=== PATIENT | female | born 1995 | race Caucasian/White ===

== ENCOUNTER 2017-03-14 17:51 | Emergency (ER) | payer BC, OTHER ==
[~2017-03-14] VITALS: Ht 162.6 cm; Wt 79.6 kg
[2017-03-14 17:53] VITALS: Ht 162.6 cm; Wt 79.6 kg
--- NOTE | 2017-03-14 20:18 | RADRPT ---
PROCEDURE: XR Shoulder. CLINICAL INDICATION: Right shoulder pain TECHNIQUE: Three views of the right shoulder are available for review. COMPARISON: None available FINDINGS: No acute fracture or dislocation is seen. No radiopaque foreign body is identified. The acromioclav icular and glenohumeral joints are unremarkable. The visualized portions of the right clavicle and upper right rib cage are equally unremarkable. IMPRESSION: 1. No acute fracture or dislocation is seen. RPTAT: HH .Hellen Duran MD, Date Time Electronically viewed and signed by .Hellen Duran MD, on 03/14/2017 20:18 .N/
--- NOTE | 2017-03-14 20:18 | RADRPT ---
PROCEDURE: XR Shoulder. CLINICAL INDICATION: Right shoulder pain TECHNIQUE: Three views of the right shoulder are available for review. COMPARISON: None available FINDINGS: No acute fracture or dislocation is seen. No radiopaque foreign body is identified. The acromioclav icular and glenohumeral joints are unremarkable. The visualized portions of the right clavicle and upper right rib cage are equally unremarkable. IMPRESSION: 1. No acute fracture or dislocation is seen. RPTAT: HH .Hellne Duran MD, Date Time Electronically viewed and signed by .Hellen Duran MD, on 03/14/2017 20:18 .N/
--- NOTE | 2017-03-14 20:19 | RADRPT ---
PROCEDURE: XR Wrist. CLINICAL INDICATION: Left wrist pain TECHNIQUE: AP, lateral and oblique views of the left wrist were performed. COMPARISON: No prior studies are available for comparison. FINDINGS: No evidence of fracture, dislocation, or subluxation is seen. The bones appear well mineralized. The joint spaces are well preserved. No significant soft tissue swelling is present. There is no radiop aque foreign body. IMPRESSION: 1. No acute fracture or dislocation. RPTAT: HH .Hellen Duran MD, Date Time Electronically viewed and signed by .Hellen Duran MD, on 03/14/2017 20:18 .N/
--- NOTE | 2017-03-14 20:19 | RADRPT ---
PROCEDURE: XR Elbow. CLINICAL INDICATION: Left elbow pain TECHNIQUE: Three views of the left elbow are available for review COMPARISON: None available FINDINGS: No acute fracture or dislocation is seen. No radiopaque foreign body is identified. No fat pad sail sign is identified to indicate a hemarthrosis. There is no significant soft tissue swelling. IMPRESSION: 1. No acute fracture or dislocation. RPTAT: HH .Hellen Duran MD, MD Date Time Electronically viewed and signed by .Hellen Duran MD, on 03/14/2017 20:19 .N/
[2017-03-14] MEDS ORDERED: IBUP-1542 PO (20:24)
--- NOTE | 2017-03-14 21:24 | ERD ---
ER Documentation Chief Complaint Chief Complaint lt elbow and forearm pain , rt shoulder pain s/p fall HPI Patient is a 21-year-old female presenting to the emergency department with complaints of left elbow, left wrist, and right shoulder pain status post fall earlier today. The patient was standing and was trying to step over a ledge and fell approximately 5 feet forward onto her left wrist and left elbow. Pain is 6 out of 10, intermittent, worse with movement, no medication taken for relief of symptoms. She denies any head injury, loss of consciousness, or other injuries at this time. ROS All systems reviewed and are negative except as per history of present illness. Medications Home Meds Active Scripts Ibuprofen* (Motrin*) 600 Mg Tab, 600 MG PO Q6, #30 TAB Prov:MILIND ABREU PA-C 03/14/17 PMhx/Soc History of Surgery: No Anesthesia Reaction: No Hx Neurological Disorder: No Hx Respiratory Disorders: No Hx Cardiac Disorders: No Hx Psychiatric Problems: No Hx Miscellaneous Medical Probl: No Hx Alcohol Use: No Hx Substance Use: No Hx Tobacco Use: No Smoking Status: Never smoker Physical Exam Vitals Vital Signs Date Time Temp Pulse Resp B/P Pulse Ox O2 Delivery O2 Flow Rate FiO2 03/14/17 17:53 98.1 78 18 131/89 100 Physical Exam Const: Nontoxic, well-appearing female in no acute distress. Head: Atraumatic Eyes: Normal Conjunctiva ENT: Normal External Ears, Nose and Mouth. Skin: No petechiae or rashes Ext: Subjective tenderness palpation about the left wrist. Difficulty with active supination of the left upper extremity. Range of motion is intact in the left wrist. 2+ radial pulses. No obvious deformity or open fracture noted. No significant ecchymosis or edema noted. The patient has mildly limited abduction of the right upper extremity. 2+ radial pulses in the right upper extremity no obvious deformity. No open fracture of the right upper extremity. Neur: Awake and alert Psych: Normal Mood and Affect Procedures/MDM Patient is a 21-year-old female presenting to the emergency department with complaints of left wrist, left elbow, and right shoulder pain after fall earlier today. Physical examination is essentially unremarkable. X-ray showed no acute fractures or dislocations. Patient was stable for outpatient management with a prescription for ibuprofen. Copies of the negative x-ray results were given to the patient. No evidence of life-threatening pathology at time of discharge. Pt/family in agreement with discharge plan/diagnosis. Pt/family advised to return immediately with any new or worsening symptoms. Follow-up with primary care physician within the next 1-2 days. Disclaimer: Inadvertent spelling and grammatical errors are likely due to EHR/ dictation software use and do not reflect on the overall quality of patient care. Also, please note that the electronic time recorded on this note does not necessarily reflect the actual time of the patient encounter. PROCEDURE: XR Wrist. CLINICAL INDICATION: Left wrist pain TECHNIQUE: AP, lateral and oblique views of the left wrist were performed. COMPARISON: No prior studies are available for comparison. FINDINGS: No evidence of fracture, dislocation, or subluxation is seen. The bones appear well mineralized. The joint spaces are well preserved. No significant soft tissue swelling is present. There is no radiopaque foreign body. IMPRESSION: 1. No acute fracture or dislocation. RPTAT: .Hellen Duran MD, Date Time Electronically viewed and signed by .Hellen Duran MD, MD on 03/14/2017 20: 18 PROCEDURE: XR Shoulder. CLINICAL INDICATION: Right shoulder pain TECHNIQUE: Three views of the right shoulder are available for review. COMPARISON: None available FINDINGS: No acute fracture or dislocation is seen. No radiopaque foreign body is identified. The acromioclavicular and glenohumeral joints are unremarkable. The visualized portions of the right clavicle and upper right rib cage are equally unremarkable. IMPRESSION: 1. No acute fracture or dislocation is seen. RPTAT: .Hellen Duran MD, MD Date Time Electronically viewed and signed by .Hellen Duran MD, MD on 03/14/2017 20: 18 PROCEDURE: XR Elbow. CLINICAL INDICATION: Left elbow pain TECHNIQUE: Three views of the left elbow are available for review COMPARISON: None available FINDINGS: No acute fracture or dislocation is seen. No radiopaque foreign body is identified. No fat pad sail sign is identified to indicate a hemarthrosis. There is no significant soft tissue swelling. IMPRESSION: 1. No acute fracture or dislocation. RPTAT: HH .Hellen Duran MD, MD Date Time Electronically viewed and signed by .Hellen Duran MD, MD on 03/14/2017 20:19 Departure Diagnosis: Primary Impression: Fall with no significant injury Encounter type: initial encounter Qualified Code: W19.XXXA - Fall with no significant injury, initial encounter Condition: Fair Patient Instructions: Fall Prevention Referrals: [facility] YOU HAVE RECEIVED A MEDICAL SCREENING EXAM AND THE RESULTS INDICATE THAT YOU DO NOT HAVE A CONDITION THAT REQUIRES URGENT TREATMENT IN THE EMERGENCY DEPARTMENT. FURTHER EVALUATION AND TREATMENT OF YOUR CONDITION CAN WAIT UNTIL YOU ARE SEEN IN YOUR DOCTORS OFFICE WITHIN THE NEXT 1-2 DAYS. IT IS YOUR RESPONSIBILITY TO MAKE AN APPOINTMENT FOR FOLOW-UP CARE. IF YOU HAVE A PRIMARY DOCTOR --you should call your primary doctor and schedule an appointment IF YOU DO NOT HAVE A PRIMARY DOCTOR YOU CAN CALL OUR PHYSICIAN REFERRAL HOTLINE AT IF YOU CAN NOT AFFORD TO SEE A PHYSICIAN YOU CAN CHOSE FROM THE FOLLOWING [facility] [address] [facility]. [place] [address] [facility] [facility] [address] [facility] [facility] [address] [facility]. [facility] [address] [facility]. [facility] [address] Additional Instructions: Call your primary care doctor TOMORROW for an appointment during the next 1-2 days.See the doctor sooner or return here if your condition worsens before your appointment time. MILIND ABREU PA-C Mar 14, 2017 21:24
--- NOTE | 2017-03-14 21:24 | ERD ---
ER Documentation Chief Complaint Chief Complaint lt elbow and forearm pain , rt shoulder pain s/p fall HPI Patient is a 21-year-old female presenting to the emergency department with complaints of left elbow, left wrist, and right shoulder pain status post fall earlier today. The patient was standing and was trying to step over a ledge and fell approximately 5 feet forward onto her left wrist and left elbow. Pain is 6 out of 10, intermittent, worse with movement, no medication taken for relief of symptoms. She denies any head injury, loss of consciousness, or other injuries at this time. ROS All systems reviewed and are negative except as per history of present illness. Medications Home Meds Active Scripts Ibuprofen* (Motrin*) 600 Mg Tab, 600 MG PO Q6, #30 TAB Prov:MILIND ABREU PA-C 03/14/17 PMhx/Soc History of Surgery: No Anesthesia Reaction: No Hx Neurological Disorder: No Hx Respiratory Disorders: No Hx Cardiac Disorders: No Hx Psychiatric Problems: No Hx Miscellaneous Medical Probl: No Hx Alcohol Use: No Hx Substance Use: No Hx Tobacco Use: No Smoking Status: Never smoker Physical Exam Vitals Vital Signs Date Time Temp Pulse Resp B/P Pulse Ox O2 Delivery O2 Flow Rate FiO2 03/14/17 17:53 98.1 78 18 131/89 100 Physical Exam Const: Nontoxic, well-appearing female in no acute distress. Head: Atraumatic Eyes: Normal Conjunctiva ENT: Normal External Ears, Nose and Mouth. Skin: No petechiae or rashes Ext: Subjective tenderness palpation about the left wrist. Difficulty with active supination of the left upper extremity. Range of motion is intact in the left wrist. 2+ radial pulses. No obvious deformity or open fracture noted. No significant ecchymosis or edema noted. The patient has mildly limited abduction of the right upper extremity. 2+ radial pulses in the right upper extremity no obvious deformity. No open fracture of the right upper extremity. Neur: Awake and alert Psych: Normal Mood and Affect Procedures/MDM Patient is a 21-year-old female presenting to the emergency department with complaints of left wrist, left elbow, and right shoulder pain after fall earlier today. Physical examination is essentially unremarkable. X-ray showed no acute fractures or dislocations. Patient was stable for outpatient management with a prescription for ibuprofen. Copies of the negative x-ray results were given to the patient. No evidence of life-threatening pathology at time of discharge. Pt/family in agreement with discharge plan/diagnosis. Pt/family advised to return immediately with any new or worsening symptoms. Follow-up with primary care physician within the next 1-2 days. Disclaimer: Inadvertent spelling and grammatical errors are likely due to EHR/ dictation software use and do not reflect on the overall quality of patient care. Also, please note that the electronic time recorded on this note does not necessarily reflect the actual time of the patient encounter. PROCEDURE: XR Wrist. CLINICAL INDICATION: Left wrist pain TECHNIQUE: AP, lateral and oblique views of the left wrist were performed. COMPARISON: No prior studies are available for comparison. FINDINGS: No evidence of fracture, dislocation, or subluxation is seen. The bones appear well mineralized. The joint spaces are well preserved. No significant soft tissue swelling is present. There is no radiopaque foreign body. IMPRESSION: 1. No acute fracture or dislocation. RPTAT: .Hellen Duran MD, Date Time Electronically viewed and signed by .Hellen Duran MD, MD on 03/14/2017 20: 18 PROCEDURE: XR Shoulder. CLINICAL INDICATION: Right shoulder pain TECHNIQUE: Three views of the right shoulder are available for review. COMPARISON: None available FINDINGS: No acute fracture or dislocation is seen. No radiopaque foreign body is identified. The acromioclavicular and glenohumeral joints are unremarkable. The visualized portions of the right clavicle and upper right rib cage are equally unremarkable. IMPRESSION: 1. No acute fracture or dislocation is seen. RPTAT: .Hellen Duran MD, MD Date Time Electronically viewed and signed by .Hellen Duran MD, MD on 03/14/2017 20: 18 PROCEDURE: XR Elbow. CLINICAL INDICATION: Left elbow pain TECHNIQUE: Three views of the left elbow are available for review COMPARISON: None available FINDINGS: No acute fracture or dislocation is seen. No radiopaque foreign body is identified. No fat pad sail sign is identified to indicate a hemarthrosis. There is no significant soft tissue swelling. IMPRESSION: 1. No acute fracture or dislocation. RPTAT: HH .Hellen Duran MD, MD Date Time Electronically viewed and signed by .Hellen Duran MD, MD on 03/14/2017 20:19 Departure Diagnosis: Primary Impression: Fall with no significant injury Encounter type: initial encounter Qualified Code: W19.XXXA - Fall with no significant injury, initial encounter Condition: Fair Patient Instructions: Fall Prevention Referrals: [facility] YOU HAVE RECEIVED A MEDICAL SCREENING EXAM AND THE RESULTS INDICATE THAT YOU DO NOT HAVE A CONDITION THAT REQUIRES URGENT TREATMENT IN THE EMERGENCY DEPARTMENT. FURTHER EVALUATION AND TREATMENT OF YOUR CONDITION CAN WAIT UNTIL YOU ARE SEEN IN YOUR DOCTORS OFFICE WITHIN THE NEXT 1-2 DAYS. IT IS YOUR RESPONSIBILITY TO MAKE AN APPOINTMENT FOR FOLOW-UP CARE. IF YOU HAVE A PRIMARY DOCTOR --you should call your primary doctor and schedule an appointment IF YOU DO NOT HAVE A PRIMARY DOCTOR YOU CAN CALL OUR PHYSICIAN REFERRAL HOTLINE AT IF YOU CAN NOT AFFORD TO SEE A PHYSICIAN YOU CAN CHOSE FROM THE FOLLOWING [facility] [address] [facility]. [facility] [address] [facility] [facility] [address] [facility] [facility] [address] [facility]. [facility] [address] [facility] [address] Additional Instructions: Call your primary care doctor TOMORROW for an appointment during the next 1-2 days.See the doctor sooner or return here if your condition worsens before your appointment time. MILIND ABREU PA-C Mar 14, 2017 21:24
--- NOTE | 2017-03-14 21:24 | ERD ---
ER Documentation Chief Complaint Chief Complaint lt elbow and forearm pain , rt shoulder pain s/p fall HPI Patient is a 21-year-old female presenting to the emergency department with complaints of left elbow, left wrist, and right shoulder pain status post fall earlier today. The patient was standing and was trying to step over a ledge and fell approximately 5 feet forward onto her left wrist and left elbow. Pain is 6 out of 10, intermittent, worse with movement, no medication taken for relief of symptoms. She denies any head injury, loss of consciousness, or other injuries at this time. ROS All systems reviewed and are negative except as per history of present illness. Medications Home Meds Active Scripts Ibuprofen* (Motrin*) 600 Mg Tab, 600 MG PO Q6, #30 TAB Prov:MILIND ABREU PA-C 03/14/17 PMhx/Soc History of Surgery: No Anesthesia Reaction: No Hx Neurological Disorder: No Hx Respiratory Disorders: No Hx Cardiac Disorders: No Hx Psychiatric Problems: No Hx Miscellaneous Medical Probl: No Hx Alcohol Use: No Hx Substance Use: No Hx Tobacco Use: No Smoking Status: Never smoker Physical Exam Vitals Vital Signs Date Time Temp Pulse Resp B/P Pulse Ox O2 Delivery O2 Flow Rate FiO2 03/14/17 17:53 98.1 78 18 131/89 100 Physical Exam Const: Nontoxic, well-appearing female in no acute distress. Head: Atraumatic Eyes: Normal Conjunctiva ENT: Normal External Ears, Nose and Mouth. Skin: No petechiae or rashes Ext: Subjective tenderness palpation about the left wrist. Difficulty with active supination of the left upper extremity. Range of motion is intact in the left wrist. 2+ radial pulses. No obvious deformity or open fracture noted. No significant ecchymosis or edema noted. The patient has mildly limited abduction of the right upper extremity. 2+ radial pulses in the right upper extremity no obvious deformity. No open fracture of the right upper extremity. Neur: Awake and alert Psych: Normal Mood and Affect Procedures/MDM Patient is a 21-year-old female presenting to the emergency department with complaints of left wrist, left elbow, and right shoulder pain after fall earlier today. Physical examination is essentially unremarkable. X-ray showed no acute fractures or dislocations. Patient was stable for outpatient management with a prescription for ibuprofen. Copies of the negative x-ray results were given to the patient. No evidence of life-threatening pathology at time of discharge. Pt/family in agreement with discharge plan/diagnosis. Pt/family advised to return immediately with any new or worsening symptoms. Follow-up with primary care physician within the next 1-2 days. Disclaimer: Inadvertent spelling and grammatical errors are likely due to EHR/ dictation software use and do not reflect on the overall quality of patient care. Also, please note that the electronic time recorded on this note does not necessarily reflect the actual time of the patient encounter. PROCEDURE: XR Wrist. CLINICAL INDICATION: Left wrist pain TECHNIQUE: AP, lateral and oblique views of the left wrist were performed. COMPARISON: No prior studies are available for comparison. FINDINGS: No evidence of fracture, dislocation, or subluxation is seen. The bones appear well mineralized. The joint spaces are well preserved. No significant soft tissue swelling is present. There is no radiopaque foreign body. IMPRESSION: 1. No acute fracture or dislocation. RPTAT: .Hellen Duran MD, Date Time Electronically viewed and signed by .Hellen Duran MD, MD on 03/14/2017 20: 18 PROCEDURE: XR Shoulder. CLINICAL INDICATION: Right shoulder pain TECHNIQUE: Three views of the right shoulder are available for review. COMPARISON: None available FINDINGS: No acute fracture or dislocation is seen. No radiopaque foreign body is identified. The acromioclavicular and glenohumeral joints are unremarkable. The visualized portions of the right clavicle and upper right rib cage are equally unremarkable. IMPRESSION: 1. No acute fracture or dislocation is seen. RPTAT: .Hellen Duran MD, MD Date Time Electronically viewed and signed by .Hellen Duran MD, MD on 03/14/2017 20: 18 PROCEDURE: XR Elbow. CLINICAL INDICATION: Left elbow pain TECHNIQUE: Three views of the left elbow are available for review COMPARISON: None available FINDINGS: No acute fracture or dislocation is seen. No radiopaque foreign body is identified. No fat pad sail sign is identified to indicate a hemarthrosis. There is no significant soft tissue swelling. IMPRESSION: 1. No acute fracture or dislocation. RPTAT: HH .Hellen Duran MD, MD Date Time Electronically viewed and signed by .Hellen Duran MD, MD on 03/14/2017 20:19 Departure Diagnosis: Primary Impression: Fall with no significant injury Encounter type: initial encounter Qualified Code: W19.XXXA - Fall with no significant injury, initial encounter Condition: Fair Patient Instructions: Fall Prevention Referrals: [facility] YOU HAVE RECEIVED A MEDICAL SCREENING EXAM AND THE RESULTS INDICATE THAT YOU DO NOT HAVE A CONDITION THAT REQUIRES URGENT TREATMENT IN THE EMERGENCY DEPARTMENT. FURTHER EVALUATION AND TREATMENT OF YOUR CONDITION CAN WAIT UNTIL YOU ARE SEEN IN YOUR DOCTORS OFFICE WITHIN THE NEXT 1-2 DAYS. IT IS YOUR RESPONSIBILITY TO MAKE AN APPOINTMENT FOR FOLOW-UP CARE. IF YOU HAVE A PRIMARY DOCTOR --you should call your primary doctor and schedule an appointment IF YOU DO NOT HAVE A PRIMARY DOCTOR YOU CAN CALL OUR PHYSICIAN REFERRAL HOTLINE AT IF YOU CAN NOT AFFORD TO SEE A PHYSICIAN YOU CAN CHOSE FROM THE FOLLOWING [facility] [address] [facility]. [facility] [address] [facility] [address] [facility] [address] [facility]. [facility] [address] [facility]. [facility] [address] Additional Instructions: Call your primary care doctor TOMORROW for an appointment during the next 1-2 days.See the doctor sooner or return here if your condition worsens before your appointment time. MILIND ABREU PA-C Mar 14, 2017 21:24
== END 2017-03-14 20:38 | disposition home or self-care (01) ==
LOC: FTE 17:51
DX: M25.522 Pain in left elbow (principal); M25.532 Pain in left wrist; M25.511 Pain in right shoulder